=== PATIENT | female | born 1965 | race Caucasian/White ===

== ENCOUNTER 2020-09-10 09:43 | Emergency (ER) | payer OTHER | END 2020-09-10 10:59 | disposition home or self-care (01) | LOC: JVIRT 09:43 → EDBD 09:43 → JVIRT 10:59 | DX: Z03.818 Encounter for observation for suspected exposure to other biological agents ruled out (principal) | CPT/HCPCS: C9803; G2012-GT; U0003 ==

== ENCOUNTER 2023-02-10 10:45 | Emergency (ER) | payer OTHER ==
[2023-02-10 11:02] VITALS: BP 113/64; PULSE 57; RESP 16; TEMP 99; BMI 22.3
== END 2023-02-10 11:06 | disposition home or self-care (01) ==
LOC: FER 10:45
DX: S86.912A Strain of unspecified muscle(s) and tendon(s) at lower leg level, left leg, initial encounter (principal); M79.662 Pain in left lower leg; X50.9XXA Other and unspecified overexertion or strenuous movements or postures, initial encounter; Y93.73 Activity, racquet and hand sports
CPT/HCPCS: 99283-25